=== PATIENT | female | born 1995 | race Caucasian/White ===

== ENCOUNTER 2020-11-19 21:58 | Emergency (ER) | payer SELFPAY ==
[~2020-11-19] VITALS: Ht 172.7 cm; Wt 154.2 kg
[2020-11-19 22:46] VITALS: BP 140/82
--- NOTE | 2020-11-19 22:50 | NUR ---
TO LOBBY A/W BED AMBULATORY
[2020-11-20] MEDS ORDERED: DEXAMETHASONE 4 MG/ML VIAL PO ONE (02:20)
[2020-11-20] MEDS ORDERED: KETOROLAC 60 MG/2 ML VIAL IM ONE (02:20)
[2020-11-20 02:32] LABS: BASOPHILS # (AUTO) 0.1 K/uL (0.00-0.22); BASOPHILS % (AUTO) 0.8 % (0.0-2.0); EOSINOPHILS # (AUTO) 0.1 K/uL (0-0.4); EOSINOPHILS % (AUTO) 1.2 % (0.0-4.0); HEMOGLOBIN 13.5 g/dL (12.0-16.0); LYMPHOCYTES # (AUTO) 3.4 K/uL (2.5-16.5); MEAN CORPUSCULAR HEMOGLOBIN 29 pg (27-31); MEAN CORPUSCULAR HGB CONC 33 g/dL (33-37); MEAN CORPUSCULAR VOLUME 86.6 fL (80-94); MONOCYTES # (AUTO) 0.6 K/uL (0.8-1.0); MONOCYTES % (AUTO) 6.5 % (1.7-9.3); NEUTROPHILS # (AUTO) 5.5 K/uL (1.8-7.7); NEUTROPHILS % (AUTO) 56.5 % (42.2-75.2); PLATELET COUNT (AUTO) 359 K/uL (140-450); RED BLOOD CELL COUNT(AUTO) 4.73 MIL/uL (4.20-5.40); RED CELL DISTRIBUTION WIDTH 13.3 % (11.6-13.7); WHITE BLOOD COUNT (AUTO) 9.7 K/uL (4.8-10.8)
[2020-11-20 02:57] LABS: ALBUMIN 3.8 g/dL (3.4-5.0); ANION GAP 13.5 (8-16); CARBON DIOXIDE 27.9 mmol/L (21-32); CREATININE 0.9 mg/dL (0.6-1.3); POTASSIUM 4.4 mmol/L (3.5-5.1); TOTAL BILIRUBIN 0.4 mg/dL (0.0-1.0)
[2020-11-20] MEDS ORDERED: METH4TAB1 PO (03:28)
[2020-11-20] MEDS ORDERED: IBUP-2213 PO (03:28)
[2020-11-20 03:39] VITALS: BP 140/82
--- NOTE | 2020-11-20 03:39 | NUR ---
Patient discharged with v/s stable. Written and verbal after care instructions given and explained. Patient verbalized understanding. Ambulatory with steady gait. All questions addressed prior to discharge. Advised to follow up with PMD.
== END 2020-11-20 03:39 | disposition home or self-care (01) ==
LOC: MED 21:58
DX: M54.41 Lumbago with sciatica, right side (principal); B30.9 Viral conjunctivitis, unspecified; F12.90 Cannabis use, unspecified, uncomplicated; Z79.899 Other long term (current) drug therapy
CPT/HCPCS: 36415; 80053; 81025; 85025; 96372; 99283; J1100; J1885

== ENCOUNTER 2021-11-15 14:18 | Outpatient (CLI) | payer MEDICAID ==
[~2021-11-15 14:18] MED LIST: IBUP-2213 PO; METH4TAB1 PO
== END 2021-11-15 20:27 | disposition home or self-care (01) ==
LOC: MUS 14:18
PROVIDERS: ATTEND Obstetrics & Gynecology
DX: O34.81 Maternal care for other abnormalities of pelvic organs, first trimester (principal); N83.201 Unspecified ovarian cyst, right side; Z3A.08 8 weeks gestation of pregnancy
CPT/HCPCS: 76801